=== PATIENT | male | born 2000 | race Caucasian/White ===

== ENCOUNTER 2021-01-08 22:19 | Emergency (ER) | payer OTHER ==
[~2021-01-08] VITALS: Ht 188 cm; Wt 99.8 kg
[2021-01-08 22:36] LABS: URINE BILIRUBIN NEGATIVE (Negative); URINE BLOOD NEGATIVE (Negative); URINE CLARITY CLEAR; URINE COLOR YELLOW; URINE GLUCOSE-RANDOM NEGATIVE (Negative); URINE KETONES NEGATIVE (Negative); URINE LEUKOCYTES NEGATIVE (Negative); URINE NITRITE NEGATIVE (Negative); URINE PROTEIN NEGATIVE (Negative); URINE SPECIFIC GRAVITY 1.025 (1.005-1.030); URINE UROBILINOGEN 0.2 E.U./dl (0.2-1.0)
[2021-01-08] MEDS ORDERED: ANTABUSE250 M1 PO (22:36)
[2021-01-08 22:44] LABS: AMP/METHAMP Negative (Negative); BARBITURATES Negative (Negative); BENZODIAZEPINES Negative (Negative); COCAINE Negative (Negative); METHADONE Negative (Negative); OPIATES Negative (Negative); PCP Negative (Negative); THC Negative (Negative)
[2021-01-08 22:45] LABS: HEMOGLOBIN 15.2 gm/dL (14.0-18.0); MCH 31.9 pg (26.0-34.0); MCHC 34.6 g/dL (28.0-37.0); MPV 6.8 fl. (7.2-11.1); RBC 4.78 mil/uL (4.50-6.00); RDW-CV 12.6 % (10.5-14.5)
[2021-01-08 22:53] LABS: CALCIUM 8.2 mg/dL (8.5-10.1); CREATININE 1.4 mg/dL (0.6-1.3); POTASSIUM 3.9 mmol/L (3.5-5.1)
[2021-01-08 22:58] LABS: ALBUMIN 4.3 g/dL (3.4-5.0); TOTAL BILIRUBIN 0.2 mg/dL (<0.1-1.0); TOTAL PROTEIN 7.7 g/dL (6.4-8.2)
[2021-01-08 23:03] LABS: SALICYLATE < 2.8 mg/dL (2.8-20.0)
[2021-01-08 23:13] LABS: ACETAMINOPHEN < 2 ug/mL (10-30)
[2021-01-08 23:22] LABS: ALCOHOL 304 mg/dL (<10)
[2021-01-09 02:07] VITALS: BP 113/63
== END 2021-01-09 02:10 | disposition home or self-care (01) ==
LOC: M.ERS 22:19
PROVIDERS: Personal Emergency Response Attendant
DX: F10.129 Alcohol abuse with intoxication, unspecified (principal); Y90.9 Presence of alcohol in blood, level not specified